=== PATIENT | male | born 1965 | race Caucasian/White ===

== ENCOUNTER 2025-06-03 17:48 | Emergency (ER) | payer MEDICARE, OTHER ==
[~2025-06-03] VITALS: Ht 177.8 cm; Wt 110.9 kg
[2025-06-03 18:02] VITALS: BP 109/72; PULSE 85; RESP 16; TEMP 99.3; O2SAT 97
[2025-06-03] MEDS ORDERED: KETOROLAC TROMETHAMINE 30 MG/ML VIAL IVP ONE (18:45)
[2025-06-03] MEDS ORDERED: ACETAMINOPHEN 500 MG TABLET PO ONE (18:45)
[2025-06-03 19:03] LABS: PLATELET COUNT (AUTO) 306 K/uL (150-450); RED BLOOD CELL COUNT(AUTO) 3.76 MIL/uL (4.50-5.90); RED CELL DISTRIBUTION WIDTH 15.1 % (11.5-14.5); WHITE BLOOD COUNT (AUTO) 13.6 K/uL (4.5-11.0)
[2025-06-03 19:15] LABS: CALCIUM, TOTAL 9.1 mg/dL (8.8-10.5); CREATININE 1.23 mg/dL (0.60-1.30); GLOMERULAR FILTR. RATE CALC 60.0 mL/min (>60); GLUCOSE,RANDOM 139.0 mg/dL (70-110); SODIUM SERUM 137.0 mmol/L (136-145); UREA NITROGEN, BLOOD 9.0 mg/dL (7-18)
[2025-06-03 19:16] LABS: BAND NEUTROPHILS % (MANUAL) 9 % (0-5); LYMPHOCYTES % (MANUAL) 18 % (22-44); MONOCYTES % (MANUAL) 12 % (2-9); SEGMENTED NEUTROPHILS % 61 % (40-70)
[2025-06-03 19:19] LABS: ASPARTATE AMINOTRANSFERASE 11.0 U/L (15-37); TOTAL PROTEIN, SERUM 7.6 g/dL (6.4-8.2)
== END 2025-06-04 00:23 | disposition left against medical advice (07) ==
LOC: EMS 17:48
DX: R10.33 Periumbilical pain (principal)
CPT/HCPCS: 80048; 80076; 83690; 85025; 99285